=== PATIENT | male | born 2000 | race African-American/Black ===

== ENCOUNTER 2020-06-07 02:23 | Emergency (ER) | payer OTHER ==
[~2020-06-07] VITALS: Ht 180.3 cm; Wt 97.3 kg
[2020-06-07 03:57] VITALS: BP 133/88
== END 2020-06-07 04:08 | disposition home or self-care (01) ==
LOC: M ED 02:23
DX: F43.0 Acute stress reaction (principal); F32.9 Major depressive disorder, single episode, unspecified; F17.200 Nicotine dependence, unspecified, uncomplicated